=== PATIENT | female | born 1960 | race African-American/Black ===

== ENCOUNTER 2017-01-15 04:05 | Emergency (ER) | payer OTHER, MEDICARE ==
[~2017-01-15] VITALS: Ht 157.5 cm; Wt 113.4 kg
[~2017-01-15 04:05] MED LIST: ALPRAZOLAM0.5 M3 PO; BUTORPHANOL10 MG/ML NAS; COMPAZINE25 M1; COMPRO25 MG RC; FIORICET 325 MG1 TAB PO; FLEXERIL10 MG PO; FLUCONAZOLE100 MG PO; IBU800 MG PO; KLOR-CON 1010 MEQ PO; MOTRIN800 MG PO; OPANA ER20 MG PO; OPANA ER40 MG PO; OXYCODONE HCL15 MG PO; OXYCODONE HCL30 MG PO; PHENERGAN12.5 M1 PO; PLENDIL5 MG PO; PRINIVIL20 M1 PO; SOMA 350MG TAB350 MG PO; TORADOL10 MG PO; ZESTORETIC 12.51 TA1 PO; [UNRECOGNIZED DRUG - OTHER]
[2017-01-15 04:19] VITALS: BP 131/90
--- NOTE | 2017-01-15 04:34 | ED ANKLE/FOOT INJURY COMPLAINT ---
History of Present Illness General Chief Complaint: Foot or Ankle Injury Stated Complaint: RT FOOT SWELLING PER PT Source: patient, old records Exam Limitations: no limitations Vital Signs & Intake/Output Vital Signs & Intake/Output Vital Signs Date Time Temp Pulse Resp B/P Pulse O2 O2 Flow FiO2 Ox Delivery Rate 01/15 0438 97 01/15 0429 96 Room Air 01/15 0419 98.0 88 20 131/90 96 Room Air Room Air Allergies Coded Allergies: sumatriptan (From IMITREX) (Severe, CLOSES THROAT 08/14/16) codeine (Intermediate, HEADACHE 08/14/16) Reconcile Medications Acetaminophen/Butalbital/Caf (Fioricet 325 MG-50 MG-40 MG) 1 TAB TAB 1 TAB PO Q4P PRN UNKNOWN (Reported) do not exceed 6 tablet(s) in 24 hours Alprazolam 0.5 MG TAB 1 MG PO PRN ANXIETY (Reported) Aluminum Chloride (Hypercare 35 Ml) 20 % SOLUTION UNKNOWN (Reported) Carisoprodol (Soma 350MG Tab) 350 MG TABLET 1 TAB PO TID UNKNOWN (Reported) Felodipine (Felodipine ER) 5 MG TAB.ER.24H 1 TAB PO DAILY BP (Reported) Ibuprofen (Ibu) 800 MG TAB 1 TAB PO TID PRN PAIN (Reported) Ketorolac Tromethamine (Toradol) 10 MG TAB 1 TAB PO Q8 HEADACHE Lisinopril (Prinivil) 20 MG TABLET 1 TAB PO DAILY HTN (Reported) OXYCODONE HCL (Oxycodone HCl) 30 MG TABLET 1 TAB PO Q6 PRN PAIN (Reported) Oxymorphone Hydrochloride (Opana ER) [address] 60 MG PO BID PAIN (Reported) Oxymorphone Hydrochloride (Opana ER) [address] 1 TAB PO BID PAIN (Reported) Potassium Chloride (Klor-Con 10) 8 MEQ TABLET.ER 1 TAB PO BID UNKNOWN ( Reported) Prochlorperazine (Compazine) 25 MG SUPP.RECT NAUSEA (Reported) Promethazine Hydrochloride (Phenergan) 12.5 MG TAB 1 TAB PO BID NAUSEA Triage Note: 56yo FEMALE TO TRIAGE W/CO R FT PAIN AND SWELLING THAT CAME ON 1430. DENIES ANY TRAUMA OR INJURY. Triage Nurses Notes Reviewed? yes HPI: Patient was out shopping today when she developed pain and swelling to her right foot. Pain is 10 out of 10. Pain increased with ambulation. Pain starts from the mid foot and radiates up to the anterior portion of her ankle. The pain is throbbing in nature. Patient denies any injury. Patient also states that she has had sinus congestion for the past month associated with occasional wheezing. Patient denies any dyspnea on exertion or orthopnea. There is no chest pain. There are no fevers or chills. Past History Travel History Traveled to [place] past 21 day No Medical History Any Pertinent Medical History? see below for history Neurological: migraine EENT: NONE Cardiovascular: NONE Respiratory: pulmonary embolism Gastrointestinal: NONE Hepatic: NONE Renal: NONE Musculoskeletal: osteoarthritis, NEEDS L KNEE REPLACEMENT Psychiatric: NONE Endocrine: NONE Blood Disorders: NONE Cancer(s): NONE LAYOUT ARTIST/Reproductive: NONE Surgical History Surgical History: non-contributory Psychosocial History What is your primary language Kiswahili Tobacco Use: Quit >30 days ago ETOH Use: denies use Illicit Drug Use: denies illicit drug use Family History Hx Contributory? No Review of Systems Review of Systems Constitutional: Reports: no symptoms. EENTM: Reports: see HPI, nasal congestion. Respiratory: Reports: see HPI, wheezing. Cardiovascular: Reports: no symptoms. GI: Reports: no symptoms. Genitourinary: Reports: no symptoms. Musculoskeletal: Reports: see HPI. Skin: Reports: no symptoms. Neurological/Psychological: Reports: no symptoms. Hematologic/Endocrine: Reports: no symptoms. Immunologic/Allergic: Reports: no symptoms. All Other Systems: Reviewed and Negative Physical Exam Physical Exam General Appearance: well developed/nourished, mild distress Head: atraumatic Eyes: Bilateral: PERRL, EOMI. Ears, Nose, Throat: normal pharynx, normal ENT inspection, hearing grossly normal Neck: normal inspection, supple Cardiovascular/Respiratory: normal peripheral pulses, regular rate/rhythm, SLIGHT EXPIRATORY WHEEZE WITH GOOD AIR ENTRY Back: normal inspection Leg/Knee/Thigh Left: normal range of motion, normal inspection Leg/Knee/Thigh Right: normal range of motion, normal inspection Ankle Right: normal inspection, normal range of motion Foot Right: pain, soft tissue tenderness, swelling Neuro/Vascular: normal motor function, normal sensation Tendon: normal tendon function Psychiatric: awake, alert, oriented x 3 Skin: intact, normal color, warm/dry Progress Differential Diagnosis: gout, fracture, sprain, contusion Plan of Care: Orders Procedure Date/time Status XRY-FOOT COMPLETE, RIGHT 01/15 430 Active Current Medications Sig/Paige Start time Last Medication Dose Stop Time Status Admin Albuterol Sulfate 3 ML ONCE ONE 01/15 430 UNVr (Proventil) 01/15 431 Ipratropium Brillion 2.5 ML ONCE ONE 01/15 430 UNVr (Atrovent) 01/15 431 Diagnostic Imaging: Viewed by Me: Radiology Read. Discussed w/RAD: Radiology Read. Radiology Impression: PATIENT: CHAPIN ESCOBAR PRESENT AGE: 56 PATIENT ACCOUNT NO: [id number] : 60 LOCATION: [facility] ORDERING PHYSICIAN: CAMILA GOMEZ MD SERVICE DATE: 01/15/17 EXAM TYPE: RAD - XRY-FOOT COMPLETE, R EXAMINATION: XR FOOT, RIGHT CLINICAL INFORMATION: Pain and swelling. COMPARISON: No relevant prior imaging available. TECHNIQUE: AP, lateral, and oblique views of the right foot. FINDINGS: There is degenerative joint space narrowing with associated sclerotic changes and subchondral cyst formation at the first tarsometatarsal joint. Mild joint space narrowing at the first metatarsophalangeal joint. There is nonspecific soft tissue swelling primarily involving the dorsal surface of foot. Mild degenerative spurring at the anterior margin of the tibial plafond is noted. No evidence of acute fracture or dislocation. IMPRESSION: Degenerative changes of the first ray. No evidence of acute fracture or dislocation. DICTATED BY: ANNE-MARIE CASANOVA MD DATE/TIME DICTATED:01/15/17500 PATTERN GRADER CUTTER:LIDIA DATE/TIME TRANSCRIBED:01/15/17500 CONFIDENTIAL, DO NOT COPY WITHOUT APPROPRIATE AUTHORIZATION. <Electronically signed in Other Vendor System> SIGNED BY: ANNE-MARIE CASANOVA MD 01/15/17506 Departure Departure Disposition: HOME OR SELF CARE Condition: Stable Clinical Impression Primary Impression: Arthritis Secondary Impressions: Sinus congestion Referrals: BRANDON GUEVARA MD (PCP/Family) Additional Instructions: RETURN IF SYMPTOMS WORSEN OR FOR ANY CONCERNS Departure Forms: Customer Survey General Discharge Information Prescriptions: Current Visit Scripts Albuterol Sulfate (Proair Hfa) 2 PUF INH Q4-6 PRN PRN WHEEZE #1 INHAL Mometasone Furoate (Nasonex) 2 SPRAY NASB DAILY #1 INHAL
--- NOTE | 2017-01-15 05:07 | RADIOLOGY REPORT ---
EXAMINATION: XR FOOT, RIGHT CLINICAL INFORMATION: Pain and swelling. COMPARISON: No relevant prior imaging available. TECHNIQUE: AP, lateral, and oblique views of the right foot. FINDINGS: There is degenerative joint space narrowing with associated sclerotic changes and subchondral cyst formation at the first tarsometatarsal joint. Mild joint space narrowing at the first metatarsophalangeal joint. There is nonspecific soft tissue swelling primarily involving the dorsal surface of foot. Mild degenerative spurring at the anterior margin of the tibial plafond is noted. No evidence of acute fracture or dislocation. IMPRESSION: Degenerative changes of the first ray. No evidence of acute fracture or dislocation.
[2017-01-15] MEDS ORDERED: NASONEX17 GM NASB (05:14)
[2017-01-15] MEDS ORDERED: PROAIR HFA8.5 GM INH (05:14)
== END 2017-01-15 05:19 ==
LOC: ERH 04:05
DX: M19.071 Primary osteoarthritis, right ankle and foot (principal); R09.81 Nasal congestion
CPT/HCPCS: 1263; 73630-RT

== ENCOUNTER 2017-03-03 16:44 | Emergency (ER) | payer OTHER, MEDICARE ==
[~2017-03-03] VITALS: Ht 157.5 cm; Wt 115.7 kg
[~2017-03-03 16:44] MED LIST changes: +NASONEX17 GM NASB; +PROAIR HFA8.5 GM INH
--- NOTE | 2017-03-03 17:05 | ED DYSPNEA/ASTHMA COMPLAINT ---
History of Present Illness General Chief Complaint: Wheezing/Asthma Stated Complaint: SOB, ASTHMA ACTING UP, INHALER NO HELP 93% Source: patient Exam Limitations: no limitations Vital Signs & Intake/Output Vital Signs & Intake/Output Vital Signs Date Time Temp Pulse Resp B/P B/P Pulse O2 O2 Flow FiO2 Mean Ox Delivery Rate 03/03 2052 98.9 94 16 128/78 96 Room Air 03/03 1847 97.0 102 16 113/64 100 Nasal 3.0L Cannula 03/03 1752 95 16 129/64 99 Nasal 2.0L Cannula 03/03 1719 98 Nasal 2.5L Cannula 03/03 1715 103 24 98 Nasal 2.5L Cannula 03/03 1647 98.1 102 18 121/74 ED Intake and Output 03/04 0000 03/03 1200 Intake Total Output Total Balance Patient 255 lb Weight Weight Reported by Patient Measurement Method Allergies Coded Allergies: sumatriptan (From IMITREX) (Severe, CLOSES THROAT 08/14/16) codeine (Intermediate, HEADACHE 08/14/16) Reconcile Medications Acetaminophen/Butalbital/Caf (Fioricet 325 MG-50 MG-40 MG) 1 TAB TAB 1 TAB PO Q4P PRN UNKNOWN (Reported) do not exceed 6 tablet(s) in 24 hours Albuterol Sulfate (Proventil Hfa) 90 MCG HFA.AER.AD 2 PUF INH Q4 sob Albuterol Sulfate (Proair Hfa) 90 MCG HFA.AER.AD 2 PUF INH Q4-6 PRN PRN WHEEZE Alprazolam 0.5 MG TAB 1 MG PO PRN ANXIETY (Reported) Aluminum Chloride (Hypercare 35 Ml) 20 % SOLUTION UNKNOWN (Reported) Azithromycin (Zithromax) 250 MG TABLET 1 DP PO AD BRONCHITIS 2 the first day followed by 1 for days 2-5 Carisoprodol (Soma 350MG Tab) 350 MG TABLET 1 TAB PO TID UNKNOWN (Reported) Felodipine (Felodipine ER) 5 MG TAB.ER.24H 1 TAB PO DAILY BP (Reported) Ibuprofen (Ibu) 800 MG TAB 1 TAB PO TID PRN PAIN (Reported) Ketorolac Tromethamine (Toradol) 10 MG TAB 1 TAB PO Q8 HEADACHE Lisinopril (Prinivil) 20 MG TABLET 1 TAB PO DAILY HTN (Reported) Mometasone Furoate (Nasonex) 50 MCG SPRAY.PUMP 2 SPRAY NASB DAILY SINUS CONGESTION OXYCODONE HCL (Oxycodone HCl) 30 MG TABLET 1 TAB PO Q6 PRN PAIN (Reported) Oxymorphone Hydrochloride (Opana ER) [address] 60 MG PO BID PAIN (Reported) Oxymorphone Hydrochloride (Opana ER) [address] 1 TAB PO BID PAIN (Reported) Potassium Chloride (Klor-Con 10) 8 MEQ TABLET.ER 1 TAB PO BID UNKNOWN ( Reported) Prednisone (Deltasone) 20 MG TABLET 1 TAB PO TID BRONCHITIS Prochlorperazine (Compazine) 25 MG SUPP.RECT NAUSEA (Reported) Promethazine Hydrochloride (Phenergan) 12.5 MG TAB 1 TAB PO BID NAUSEA Triage Note: PT TO TRIAGE WITH C/O DIFFICULTY BREATHIN SINCE THIS MORNING. PT WAS NEVER DIAGNOSED WITH ASTHMA BUT HAS VENTOLIN INH FOR SOB. O2SAT 93% ON RA IN TRIAGE. DENIES CHEST PAIN,ABD APIN. Triage Nurses Notes Reviewed? yes Onset: Abrupt Duration: hour(s):, constant, getting worse Timing: recent history Severity: moderate, severe HPI: 56-year-old female comes into emergency room with increasing shortness of breath is been going on for the past few hours. Patient reports some associated chest tightness. Denies any fever chills cough. Feeling difficulty catching her breath. There is a significant family history for coronary disease at a young age. She has a history of previous blood clots and has some type of filled in place. Patient is not on anticoagulants. Denies any other associated symptoms. (GEREMIAS BRENNER) Past History Travel History Traveled to [place] past 21 day No Medical History Any Pertinent Medical History? see below for history Neurological: migraine EENT: NONE Cardiovascular: NONE Respiratory: pulmonary embolism Gastrointestinal: NONE Hepatic: NONE Renal: NONE Musculoskeletal: osteoarthritis, NEEDS L KNEE REPLACEMENT Psychiatric: NONE Endocrine: NONE Blood Disorders: NONE Cancer(s): NONE RETAIL MANAGEMENT TRAINEE/Reproductive: NONE Surgical History Surgical History: non-contributory Psychosocial History What is your primary language Pashto Tobacco Use: Never used Family History Hx Contributory? No (GEREMIAS BRENNER) Review of Systems Review of Systems Constitutional: Reports: no symptoms. EENTM: Reports: no symptoms. Respiratory: Reports: see HPI. Cardiovascular: Reports: see HPI. GI: Reports: no symptoms. Genitourinary: Reports: no symptoms. Musculoskeletal: Reports: no symptoms. Skin: Reports: no symptoms. Neurological/Psychological: Reports: no symptoms. Hematologic/Endocrine: Reports: no symptoms. Immunologic/Allergic: Reports: no symptoms. All Other Systems: Reviewed and Negative (GEREMIAS BRENNER) Physical Exam Physical Exam General Appearance: well developed/nourished, alert, awake, mild distress Head: atraumatic Eyes: Bilateral: normal appearance. Ears, Nose, Throat: normal pharynx, normal ENT inspection, hearing grossly normal Neck: normal inspection Respiratory: decreased breath sounds, respiratory distress (mild) Cardiovascular: regular rate/rhythm, tachycardia Extremities: normal inspection, normal range of motion, no edema Neurologic/Psych: awake, alert, oriented x 3, normal gait, normal mood/affect Skin: intact, normal color Core Measures ACS in differential dx? No Severe Sepsis Present: No Septic Shock Present: No (GEREMIAS BRENNER) Progress Differential Diagnosis: asthma, AMI, bronchitis, costochondritis, CHF, COPD, musculoskeletal pain, pericarditis, pulmonary embolism, pneumonia, pneumothorax, rib fracture, unstable angina Plan of Care: Orders Procedure Date/time Status B-TYPE NATRIURETIC PEP (BNP) 03/03 171 Complete Telemetry/Power Generating Plant Operator 03/03 1705 Active TROPONIN LEVEL 03/03 170 Complete D-DIMER 03/03 1705 Complete COMPREHENSIVE METABOLIC PANEL 03/03 1705 Complete CBC WITHOUT DIFFERENTIAL 03/03 170 Complete EKG 03/03 1705 Active Current Medications Sig/Paige Start time Last Medication Dose Stop Time Status Admin Prednisone 60 MG ONCE ONE 03/03 1830 CAN 03/03 1831 Laboratory Tests 03/03/17 1756: Anion Gap 12, Estimated GFR 51 L, BUN/Creatinine Ratio 20.9, Glucose 101 H, Calcium 9.4, Total Bilirubin 0.6, AST 30, ALT 40, Alkaline Phosphatase 168 H, Troponin I < 0.01, Ubj-B-Dcbeancmeth Pept 13.9, Total Protein 7.5, Albumin 4.1, Globulin 3.4, Albumin/Globulin Ratio 1.2, CBC w Diff NO MAN DIFF REQ, RBC 4.75, MCV 87.5, MCH 29.0, RDW 13.4, MPV 7.7, Gran % 75.5 H, Lymphocytes % 16.1 L, Monocytes % 6.9, Eosinophils % 1.3, Basophils % 0.2, Absolute Granulocytes 8.9 H, Absolute Lymphocytes 1.9, Absolute Monocytes 0.8 H, Absolute Eosinophils 0.2 , Absolute Basophils 0, PUBS MCHC 33.2 03/03/17 1715: D-Dimer < 200 03/03/17 1709: Zyp-K-Oqaeljeddwr Pept Cancelled Diagnostic Imaging: Viewed by Me: Radiology Read, CT Scan. Discussed w/RAD: Radiology Read, CT Scan. Radiology Impression: EXAM TYPE: RAD - XRY-CHEST XRAY, PA AND LATERAL EXAMINATION: XR CHEST CLINICAL INFORMATION: Shortness of breath. COMPARISON: Chest radiography 03/30/2014. TECHNIQUE: Two views of the chest were obtained. FINDINGS: The lungs are well-expanded. No consolidation, pleural effusion, pulmonary edema, or pneumothorax. Question of mild peribronchial thickening. Mediastinal contours have not significantly changed compared to prior exam. No acute osseous abnormalities. IMPRESSION: Question of mild peribronchial thickening, which could reflect a degree of small airways inflammation. Otherwise, no acute pulmonary pathology demonstrated. DICTATED BY: RANCHO OMER MD DATE/TIME DICTATED:03/03/171804 TOBACCO CHECKOUT CLERK:LIDIA DATE/TIME TRANSCRIBED:03/03/171804, EXAM TYPE: CAT - CTA CHEST-PULMONARY EMBOLISM EXAMINATION: CT ANGIOGRAM CHEST WITH AND WITHOUT CONTRAST (CT PULMONARY ANGIOGRAM FOR PE) CLINICAL INFORMATION: Hypoxia. COMPARISON: Chest radiography earlier today. TECHNIQUE: Prior to contrast administration, noncontrast localization images were obtained. Subsequently, multidetector volumetric imaging was performed from the thoracic inlet to below the diaphragms following the administration of 80 mL Omnipaque 350 intravenous contrast. No contrast reaction reported. Sagittal, coronal, and MIP oblique sagittal reformatted images were obtained on the CT workstation, uploaded to PACS, and reviewed. Total exam dose-length product 516 mGy-cm. FINDINGS: QUALITY OF STUDY/CONTRAST BOLUS: Satisfactory PULMONARY ARTERIES: No central or segmental pulmonary emboli. THORACIC AORTA: No aneurysm or dissection. LUNG: No focal consolidation or suspicious pulmonary nodules. Mild dependent parenchymal changes. Borderline peribronchial thickening. PLEURA: No pleural effusion or pneumothorax. MEDIASTINUM: Normal heart size. No pericardial effusion. No hilar or mediastinal lymphadenopathy. No evidence of septal bowing or right heart strain. CHEST WALL/ AXILLA: No axillary or internal mammary lymphadenopathy. OSSEOUS STRUCTURES: No acute osseous abnormalities. Thoracic degenerative changes are most conspicuous at T8-T9 and T11-T12. UPPER ABDOMEN: Unremarkable. No reflux of contrast into the hepatic veins to suggest elevated right heart pressures. IMPRESSION: 1. No pulmonary embolism. 2. Borderline peribronchial thickening may reflect a degree of small airways inflammation. No other significant CT abnormality of the lungs to explain the patient's hypoxia. VTE: Negative. DICTATED BY: RANCHO OMER MD DATE/TIME DICTATED:03/03/172006 TOBACCO CHECKOUT CLERK:LIDIA DATE/TIME TRANSCRIBED:03/03/172006 Initial ED EKG: normal intervals, normal p-waves, normal sinus rhythm, rate (96) Comments: 03/03/17 Patient clinically looks well. Patient is in no apparent distress. Patient was reevaluated multiple times. Patient got multiple nebulizer treatments as well as IV steroids. No evidence of pulmonary embolism. EKG within normal limits. Walking O2 saturation 94%. Patient reports that she feels significantly better. Patient had clinical symptoms of bronchitis but due to her persistent hypoxia initially a CAT scan was ordered to rule out pulmonary embolism. There was in no acute findings on the CAT scan. Negative troponin. Patient's symptoms improved and her oxygen saturation came up and she felt better and wanted to go home. She was able to ambulate with no difficulty. Case was discussed with Dr. Darnell. Patient had been reevaluated multiple times here in the emergency room. (JOELLE BETH,GEREMIAS) Departure Departure Disposition: HOME OR SELF CARE Condition: Stable Clinical Impression Primary Impression: Bronchitis Referrals: BRANDON GUEVARA MD (PCP/Family) Additional Instructions: Take prednisone, Z-Feroz, and albuterol as prescribed. Use a spacer with your albuterol pump. Follow-up with your primary care doctor this week. Return if any concerns worsening symptoms. Please go over all results of today's visit with your primary care doctor. Contact your primary care doctor to let them know you were here in the emergency room. There may be nonspecific findings which may not be related to your visit today here in the emergency room but may require further evaluation and chronic monitoring by your primary care doctor. If you had a laceration today the chance of foreign body always remains. You should follow-up with your primary care doctor for recheck in 3-5 days for a wound check. If you had an x-ray done there is a chance that a fracture could have been missed on initial read and you should follow-up with your primary care doctor for repeat x-rays if symptoms persist. If your blood pressure was elevated here in the emergency room please have rechecked by her primary care doctor within the next 48 hours by your primary care doctor. If you were prescribed a narcotic here in the emergency room or any type of controlled substances you're not allowed to drive while taking this medication or operate any type of heavy machinery. Narcotics can make you feel lightheaded dizziness nausea and can cause constipation. You may need to picker tender a stool softener. Thank you for choosing [facility] emergency room. Please return to the emergency room immediately if you have any other concerns worsening of symptoms. Departure Forms: Customer Survey General Discharge Information Prescriptions: Current Visit Scripts Albuterol Sulfate (Proventil Hfa) 2 PUF INH Q4 #1 INHAL Prednisone (Deltasone) 1 TAB PO TID #12 MG Azithromycin (Zithromax) 1 DP PO AD #6 TAB 2 the first day followed by 1 for days 2-5 (GEREMIAS BRENNER) PA/SENIOR ELECTRICAL ENGINEER Co-Sign Statement Statement: ED Attending supervision documentation- [] I saw and evaluated the patient. I have also reviewed all the pertinent lab results and diagnostic results. I agree with the findings and the plan of care as documented in the PA's/SENIOR ELECTRICAL ENGINEER's documentation. [x] I have reviewed the ED Record and agree with the PA's/SENIOR ELECTRICAL ENGINEER's documentation. [] Additions or exceptions (if any) to the PAs/SENIOR ELECTRICAL ENGINEER's note and plan are summarized below: [] (JOSIE SINGH,GABRIELA Mauricio) Critical Care Note Critical Care Note Critical Care Time: 30-74 min (40) (GEREMIAS BRENNER)
[2017-03-03 17:32] LABS: ABSOLUTE BASOPHIL COUNT 0 /CUMM (0.0-0.2); ABSOLUTE EOSINOPHIL COUNT 0.2 /CUMM (0.0-0.7); ABSOLUTE GRANULOCYTE CT 8.9 /CUMM (1.4-6.5); ABSOLUTE LYMPH COUNT 1.9 /CUMM (1.2-3.4); ABSOLUTE MONOCYTE COUNT 0.8 /CUMM (0.10-0.60); BASOPHIL % 0.2 % (0.0-2.0); EOSINOPHIL % 1.3 % (0-5); GRANULOCYTE % 75.5 % (42.2-75.2); HEMATOCRIT 41.6 % (37-47); MEAN CORPUSCULAR HGB CONC 33.2 G/DL (33.0-37.0); MEAN CORPUSCULAR VOLUME 87.5 FL (81.0-99.0); MEAN PLATELET VOLUME 7.7 FL (7.4-10.4); PLATELET COUNT 278 /CUMM (130-400); RBC DISTRIBUTION WIDTH 13.4 % (11.5-14.5); RED BLOOD CELL CT 4.75 /CUMM (4.20-5.40); WHITE BLOOD CELL COUNT 11.8 /CUMM (4.8-10.8)
--- NOTE | 2017-03-03 18:24 | RADIOLOGY REPORT ---
EXAMINATION: XR CHEST CLINICAL INFORMATION: Shortness of breath. COMPARISON: Chest radiography 03/30/2014. TECHNIQUE: Two views of the chest were obtained. FINDINGS: The lungs are well-expanded. No consolidation, pleural effusion, pulmonary edema, or pneumothorax. Question of mild peribronchial thickening. Mediastinal contours have not significantly changed compared to prior exam. No acute osseous abnormalities. IMPRESSION: Question of mild peribronchial thickening, which could reflect a degree of small airways inflammation. Otherwise, no acute pulmonary pathology demonstrated.
--- NOTE | 2017-03-03 20:21 | CT SCAN REPORT ---
EXAMINATION: CT ANGIOGRAM CHEST WITH AND WITHOUT CONTRAST (CT PULMONARY ANGIOGRAM FOR PE) CLINICAL INFORMATION: Hypoxia. COMPARISON: Chest radiography earlier today. TECHNIQUE: Prior to contrast administration, noncontrast localization images were obtained. Subsequently, multidetector volumetric imaging was performed from the thoracic inlet to below the diaphragms following the administration of 80 mL Omnipaque 350 intravenous contrast. No contrast reaction reported. Sagittal, coronal, and MIP oblique sagittal reformatted images were obtained on the CT workstation, uploaded to PACS, and reviewed. Total exam dose-length product 516 mGy-cm. FINDINGS: QUALITY OF STUDY/CONTRAST BOLUS: Satisfactory PULMONARY ARTERIES: No central or segmental pulmonary emboli. THORACIC AORTA: No aneurysm or dissection. LUNG: No focal consolidation or suspicious pulmonary nodules. Mild dependent parenchymal changes. Borderline peribronchial thickening. PLEURA: No pleural effusion or pneumothorax. MEDIASTINUM: Normal heart size. No pericardial effusion. No hilar or mediastinal lymphadenopathy. No evidence of septal bowing or right heart strain. CHEST WALL/AXILLA: No axillary or internal mammary lymphadenopathy. OSSEOUS STRUCTURES: No acute osseous abnormalities. Thoracic degenerative changes are most conspicuous at T8-T9 and T11-T12. UPPER ABDOMEN: Unremarkable. No reflux of contrast into the hepatic veins to suggest elevated right heart pressures. IMPRESSION: 1. No pulmonary embolism. 2. Borderline peribronchial thickening may reflect a degree of small airways inflammation. No other significant CT abnormality of the lungs to explain the patient's hypoxia. VTE: Negative.
[2017-03-03] MEDS ORDERED: ZITHROMAX250 M2 PO (20:37)
[2017-03-03] MEDS ORDERED: PROVENTIL HFA6.7 GM INH (20:37)
[2017-03-03] MEDS ORDERED: DELTASONE20 MG PO (20:37)
[2017-03-03 20:52] VITALS: BP 128/78
== END 2017-03-03 20:52 ==
LOC: ERH 16:44
PROVIDERS: Physician Assistant Medical
DX: J40 Bronchitis, not specified as acute or chronic (principal); R07.89 Other chest pain
CPT/HCPCS: 1263; 93005; 93010; 96374; 96375; J2405; J2930

== ENCOUNTER 2018-03-31 13:40 | Emergency (ER) | payer OTHER, MEDICARE ==
[~2018-03-31] VITALS: Ht 157.5 cm; Wt 116.1 kg
[~2018-03-31 13:40] MED LIST changes: +DELTASONE20 MG PO; +PROVENTIL HFA6.7 GM INH; +ZITHROMAX250 M2 PO
--- NOTE | 2018-03-31 14:36 | ED AMS/SEIZURE/WEAK/DIZZY ---
History of Present Illness General Chief Complaint: General Adult Stated Complaint: SIB DR. JOHNSON FOR BLOOD TRANSFUSION Source: patient Exam Limitations: no limitations Allergies Coded Allergies: sumatriptan (From IMITREX) (Severe, CLOSES THROAT 08/14/16) codeine (Intermediate, HEADACHE 08/14/16) Reconcile Medications Acetaminophen/Butalbital/Caf (Fioricet 325 MG-50 MG-40 MG) 1 TAB TAB 1 TAB PO Q4P PRN UNKNOWN (Reported) do not exceed 6 tablet(s) in 24 hours Albuterol Sulfate (Proventil Hfa) 90 MCG HFA.AER.AD 2 PUF INH Q4 sob Albuterol Sulfate (Proair Hfa) 90 MCG HFA.AER.AD 2 PUF INH Q4-6 PRN PRN WHEEZE Alprazolam 0.5 MG TAB 1 MG PO PRN ANXIETY (Reported) Aluminum Chloride (Hypercare 35 Ml) 20 % SOLUTION UNKNOWN (Reported) Azithromycin (Zithromax) 250 MG TABLET 1 DP PO AD BRONCHITIS 2 the first day followed by 1 for days 2-5 Carisoprodol (Soma 350MG Tab) 350 MG TABLET 1 TAB PO TID UNKNOWN (Reported) Felodipine (Felodipine ER) 5 MG TAB.ER.24H 1 TAB PO DAILY BP (Reported) Ibuprofen (Ibu) 800 MG TAB 1 TAB PO TID PRN PAIN (Reported) Ketorolac Tromethamine (Toradol) 10 MG TAB 1 TAB PO Q8 HEADACHE Lisinopril (Prinivil) 20 MG TABLET 1 TAB PO DAILY HTN (Reported) Mometasone Furoate (Nasonex) 50 MCG SPRAY.PUMP 2 SPRAY NASB DAILY SINUS CONGESTION OXYCODONE HCL (Oxycodone HCl) 30 MG TABLET 1 TAB PO Q6 PRN PAIN (Reported) Oxymorphone Hydrochloride (Opana ER) [address] 60 MG PO BID PAIN (Reported) Oxymorphone Hydrochloride (Opana ER) [address] 1 TAB PO BID PAIN (Reported) Potassium Chloride (Klor-Con 10) 8 MEQ TABLET.ER 1 TAB PO BID UNKNOWN ( Reported) Prednisone (Deltasone) 20 MG TABLET 1 TAB PO TID BRONCHITIS Prochlorperazine (Compazine) 25 MG SUPP.RECT NAUSEA (Reported) Promethazine Hydrochloride (Phenergan) 12.5 MG TAB 1 TAB PO BID NAUSEA Triage Note: PT SENT TO ED BY DR CHILEL FOR BLOOD TRANSFUSION. PT WAS WITH DR CHILEL FOR INFUSION OF IRON, HAD BLOODWORK AND H&H WAS FOUND TO BE 7.4 & 23.7, WHICH IS A SIGNFICANT DROP OVER THE LAST MONTH, PER DR CHILEL. PT C/O FEEING WEAK AND TIRED. C/O KNEE PAIN, STATES "I NEED A KNEE REPLACEMENT". PT WITH [facility]PLOCK TO [facility], PLACED FOR IRON INFUSION. DR CHILEL WOULD LIKE GUAIC AND ? CAT SCAN OF ABD. PT STATES SHE RECEIVED HALF OF HER IRON INFUSION TODAY. Triage Nurses Notes Reviewed? yes Onset: Abrupt Duration: day(s): Timing: recent history HPI: 57-year-old female sent into the emergency room for further evaluation of low H& H. Patient reportedly sees a watch train assembler because she has a history of anemia. She's been feeling increasingly weak and fatigued recently. She denies any chest pain shortness of breath. Denies any vomiting. She was sent into the emergency room for blood transfusion and further evaluation. She has a drop in her H&H compared to about a month ago that her watch train assembler was concerned about. (Winston Gibson) Vital Signs & Intake/Output Vital Signs & Intake/Output Vital Signs Date Time Temp Pulse Resp B/P B/P Pulse O2 O2 Flow FiO2 Mean Ox Delivery Rate 04/01 0059 77 20 141/68 98 03/31 2240 97.7 53 18 84/56 96 Room Air 03/31 2047 98.0 52 18 97/47 96 Room Air 03/31 1830 98.5 68 18 112/60 100 Room Air 03/31 1517 98 Room Air 03/31 1400 96.0 52 20 93/60 98 Room Air ED Intake and Output 04/01 0000 03/31 1200 Intake Total 350 Output Total Balance 350 Intake, IV 350 Patient 256 lb Weight Weight Reported by Patient Measurement Method (Corry SINGH,Mayank Landry) Past History Travel History Traveled to [place] past 21 day No Medical History Any Pertinent Medical History? see below for history Neurological: migraine EENT: NONE Cardiovascular: NONE Respiratory: obstructive sleep apnea, pulmonary embolism Gastrointestinal: NONE Hepatic: NONE Renal: NONE Musculoskeletal: osteoarthritis, NEEDS L KNEE REPLACEMENT Psychiatric: NONE Endocrine: NONE Blood Disorders: anemia Cancer(s): NONE ENERGY ASSISTANT/Reproductive: NONE Surgical History Surgical History: non-contributory Psychosocial History What is your primary language Malaysian Tobacco Use: Never used ETOH Use: denies use Illicit Drug Use: denies illicit drug use Family History Hx Contributory? No (Winston Gibson) Review of Systems Review of Systems Constitutional: Reports: see HPI. EENTM: Reports: no symptoms. Respiratory: Reports: no symptoms. Cardiovascular: Reports: no symptoms. GI: Reports: see HPI. Genitourinary: Reports: no symptoms. Musculoskeletal: Reports: no symptoms. Skin: Reports: no symptoms. Neurological/Psychological: Reports: no symptoms. Hematologic/Endocrine: Reports: see HPI. Immunologic/Allergic: Reports: no symptoms. All Other Systems: Reviewed and Negative (Winston Gibson) Physical Exam Physical Exam General Appearance: well developed/nourished, alert, awake Head: atraumatic Eyes: Bilateral: normal appearance. Ears, Nose, Throat: normal ENT inspection, hearing grossly normal Neck: normal inspection Respiratory: normal breath sounds, no respiratory distress Cardiovascular: regular rate/rhythm Gastrointestinal: soft, non-tender Rectal: heme negative stool Extremities: normal range of motion Neurologic/Psych: awake, alert, oriented x 3 Skin: intact, normal color Core Measures ACS in differential dx? No CVA/TIA Diagnosis No Sepsis Present: No Sepsis Focused Exam Completed? No (Winston Gibson) Progress Differential Diagnosis: anemia, dehydration, GI bleed, anemia of chronic disease , aplastic anemia, acute blood loss, Initial ED EKG: none (Winston Gibson) Plan of Care: Orders Procedure Date/time Status EKG 03/31 2240 Active BLOOD PRODUCT PICKUP 03/31 1851 Active LEUKOCYTE POOR (PACKED CELLS) 03/31 1610 Active PARTIAL THROMBOPLASTIN TIME 03/31 1424 Complete PROTHROMBIN TIME 03/31 1424 Complete COMPREHENSIVE METABOLIC PANEL 03/31 1424 Complete CBC WITHOUT DIFFERENTIAL 03/31 1424 Complete TYPE & SCREEN (NOT X-MATCH) 03/31 1424 Complete Laboratory Tests 03/31/18 1455: Anion Gap 12, Estimated GFR 36 L, BUN/Creatinine Ratio 29.3 H, Glucose 101 H, Calcium 9.4, Total Bilirubin 0.4, AST 47 H, ALT 36, Alkaline Phosphatase 162 H , Total Protein 7.5, Albumin 4.1, Globulin 3.4, Albumin/Globulin Ratio 1.2, PT 10.9, INR 1.00, APTT 27, CBC w Diff NO MAN DIFF REQ, RBC 3.12 L, MCV 84.7, MCH 27.7, MCHC 32.7 L, RDW 13.8, MPV 7.2 L, Gran % 65.7, Lymphocytes % 20.9, Monocytes % 6.8, Eosinophils % 6.1 H, Basophils % 0.5, Absolute Granulocytes 5.9, Absolute Lymphocytes 1.9, Absolute Monocytes 0.6, Absolute Eosinophils 0.5, Absolute Basophils 0 (Corry SINGH,Mayank Landry) Comments: Patient's blood pressure has normalized after the transfusion and IV fluids. Patient has been up walking around here in the emergency department without any difficulty. Patient states that she feels much better and would really prefer to go home. CAT scan results have been discussed with the patient and she will follow up with her primary care physician for repeat CAT scan in 3-6 months. (Remington SINGH,Kevin Mcneil) Departure Departure Condition: Stable Clinical Impression Primary Impression: Symptomatic anemia Secondary Impressions: Acute kidney injury, Hypotension Referrals: Dominic Doherty MD (PCP/Family) Departure Forms: Customer Survey General Discharge Information Admission Note Spoke With: Andrei Hernandez MD Documentation of Exam: Documentation of any treatments & extenuating circumstances including Concerns Regarding Discharge (functional status, medication knowledge or non-compliance, living conditions, etc.) that warrant an admission rather than observation: IV fluids. Repeat CBCs tomorrow. Blood pressure check. BP kidney function. Blood pressure low in the emergency room despite blood. Patient has been symptomatic with weakness and has a drop in her H&H. (Winston Gibson) PA/TRACK MECHANIC Co-Sign Statement Statement: ED Attending supervision documentation- [X] I saw and evaluated the patient. I have also reviewed all the pertinent lab results and diagnostic results. I agree with the findings and the plan of care as documented in the PA's/TRACK MECHANIC's documentation. Patient presents for evaluation of low blood count. Physical examination reveals a comfortable appearing woman in no acute respiratory distress. Her color is good. [] I have reviewed the ED Record and agree with the PA's/TRACK MECHANIC's documentation. [] Additions or exceptions (if any) to the PAs/TRACK MECHANIC's note and plan are summarized below: [] (Corry SINGH,Mayank Landry) Departure Disposition: HOME OR SELF CARE Additional Instructions: Have a repeat CAT scan of her chest and 3 to 6 months. Have repeat blood work in one week. Return if symptoms worsen or for any concerns. PA/TRACK MECHANIC Co-Sign Statement Statement: ED Attending supervision documentation- [X] I saw and evaluated the patient. I have also reviewed all the pertinent lab results and diagnostic results. I agree with the findings and the plan of care as documented in the PA's/TRACK MECHANIC's documentation. [X] I have reviewed the ED Record and agree with the PA's/TRACK MECHANIC's documentation. [] Additions or exceptions (if any) to the PAs/TRACK MECHANIC's note and plan are summarized below: [See above note.] (Remington SINGH,Kevin Mcneil)
[2018-03-31 15:12] LABS: ABSOLUTE BASOPHIL COUNT 0 /CUMM (0.0-0.2); ABSOLUTE EOSINOPHIL COUNT 0.5 /CUMM (0.0-0.7); ABSOLUTE GRANULOCYTE CT 5.9 /CUMM (1.4-6.5); ABSOLUTE LYMPH COUNT 1.9 /CUMM (1.2-3.4); ABSOLUTE MONOCYTE COUNT 0.6 /CUMM (0.10-0.60); BASOPHIL % 0.5 % (0.0-2.0); EOSINOPHIL % 6.1 % (0-5); GRANULOCYTE % 65.7 % (42.2-75.2); HEMATOCRIT 26.4 % (37-47); MEAN CORPUSCULAR HGB 27.7 PG (27.0-31.0); MEAN CORPUSCULAR HGB CONC 32.7 G/DL (33.0-37.0); MEAN CORPUSCULAR VOLUME 84.7 FL (81.0-99.0); MEAN PLATELET VOLUME 7.2 FL (7.4-10.4); PLATELET COUNT 362 /CUMM (130-400); RBC DISTRIBUTION WIDTH 13.8 % (11.5-14.5); RED BLOOD CELL CT 3.12 /CUMM (4.20-5.40)
[2018-03-31 15:23] LABS: PT 10.9 SEC (9.4-12.5); PTT 27 SEC (25-37)
--- NOTE | 2018-03-31 16:57 | CT SCAN REPORT ---
EXAMINATION: CT ABDOMEN AND PELVIS WITHOUT CONTRAST CLINICAL INFORMATION: Anemia. Assess for malignancy. COMPARISON: CT abdomen pelvis 02/22/2014. TECHNIQUE: Multidetector volumetric imaging was performed from the superior aspect of the liver through the pubic symphysis. Sagittal and coronal reformatted images were obtained on the technologist's workstation. DLP: 1072 mGy-cm FINDINGS: LUNG BASES: There is mild multifocal nodular opacification, with part solid and part groundglass nodules measuring up to 0.7 cm in the left lower lobe on image 18/728. No pleural effusion. LIVER, GALLBLADDER, AND BILIARY TREE: The liver is normal in size, shape, and attenuation. No focal hepatic lesion or biliary ductal dilatation is present. The gallbladder is unremarkable with no evidence of radiopaque gallstones, gallbladder wall thickening, or obvious pericholecystic inflammatory changes. PANCREAS: Unremarkable. SPLEEN: Unremarkable. ADRENAL GLANDS: Unremarkable. KIDNEYS AND URETERS: No hydronephrosis. No renal or ureteral calculi. No suspicious renal mass demonstrated. BLADDER: Unremarkable. GASTROINTESTINAL TRACT: Bowel gas pattern is nonobstructive. No evidence of acute bowel inflammation. The appendix is unremarkable. ABDOMINAL WALL: No significant hernia is appreciated. LYMPH NODES: Subcentimeter abdominal and pelvic lymph nodes without bulky adenopathy. VASCULAR: IVC filter noted. PELVIC VISCERA: No free pelvic fluid. No suspicious adnexal lesion. The uterus is absent. OSSEOUS STRUCTURES: No acute osseous abnormalities. Multilevel degenerative disc disease and facet arthropathy, most notable at L4-L5. Nonspecific heterogeneous radiodensity within the left iliac bone, unchanged compared to exam from 2014. IMPRESSION: A few nonspecific, multifocal, part solid and part groundglass nodules in the left lower lobe measuring up to 0.7 cm. According to the UPDATED 2017 Fleischner Society recommendations, the advised follow-up imaging for multiple subsolid nodules, the largest of which measures 6 mm or greater, is: CT at 3-6 months to confirm persistence. Subsequent management should be based on the most suspicious nodule(s). No acute intra-abdominal or intrapelvic pathology. No evidence of malignancy in the abdomen or pelvis.
[2018-04-01 00:59] VITALS: BP 141/68
== END 2018-04-01 01:26 ==
LOC: ERH 13:40
PROVIDERS: Physician Assistant Medical
DX: D64.9 Anemia, unspecified (principal); N17.9 Acute kidney failure, unspecified; I95.9 Hypotension, unspecified
CPT/HCPCS: 74176; 86902; 86920; 86922; 93005; 93010; 96360; 99291; P9016